=== PATIENT | female | born 1985 ===

== ENCOUNTER 2018-03-20 15:52 | Emergency (ER) | payer BC ==
[2018-03-20 16:14] VITALS: BP 149/83
--- NOTE | 2018-03-20 16:51 | UC ---
Lower Extremity/Ankle HPI - HPI Summary HPI Summary: zeus is a 32-year-old female presenting to the with complaint of right dorsal foot pain which began approximately at 1 PM this afternoon. She states she has been working out a bit more frequently over the past few weeks. She denies any calf pain or recent travel. Endorses a mild amount of warmth to the dorsal aspect of the right foot without erythema. Denies any known injury. She has never injured this area before. Denies any ankle pain or lower extremity pain otherwise. She is ambulating, but with pain. She has not taken anything [id number] for relief. She has not been using ice or elevation for relief. Pain is worse with dorsiflexion and better with plantar flexion. - History of Current Complaint Chief Complaint: UCLowerExtremity Stated Complaint: R FOOT PAIN Time Seen by Provider: 03/20/18 16:05 Hx Obtained From: Patient Hx Last Menstrual Period: 03/13/18 ?: No Onset/Duration: Sudden Onset Severity Initially: Mild Severity Currently: Mild Pain Intensity: 6 Pain Scale Used: 0-10 Numeric Aggravating Factor(s): Standing, Ambulation Alleviating Factor(s): Rest Able to Bear Weight: No - Risk Factors Gout Risk Factors: Negative DVT Risk Factors: Negative Septic Arthritis Risk Factor: Negative - Allergies/Home Medications Allergies/Adverse Reactions: Allergies Allergy/AdvReac Type Severity Reaction Status Date / Time Sulfa (Sulfonamide Allergy Mild Rash Verified 03/20/18 16:14 Antibiotics) Home Medications: Home Medications Aspirin [Aspirin Childrens 81 MG] 2 cap PO PRN 03/20/18 [History] PMH/Surg Hx/FS Hx/Imm Hx Previously Healthy: Yes - Surgical History Surgical History: Yes Surgery Procedure, Year, and Place: wisdom teeth - Family History Known Family History: Positive: Unknown - Social History Occupation: Employed Full-time Lives: With Family Alcohol Use: Occasionally Substance Use Type: None Smoking Status (MU): Never Smoked Tobacco Review of Systems Constitutional: Negative Skin: Negative Respiratory: Negative Cardiovascular: Negative Motor: Negative Neurovascular: Negative Musculoskeletal: Arthralgia Neurological: Negative Is Patient Immunocompromised?: No All Other Systems Reviewed And Are Negative: Yes Physical Exam Triage Information Reviewed: Yes Appearance: Well-Appearing, No Pain Distress, Well-Nourished Vital Signs: Initial Vital Signs Temp 100 F 03/20/18 16:08 Pulse 105 03/20/18 16:08 Resp 18 03/20/18 16:08 BP 149/83 03/20/18 16:08 Pulse Ox 100 03/20/18 16:08 Vital Signs Reviewed: Yes Eye Exam: Normal Neck exam: Normal Neck: Positive: Supple, No Lymphadenopathy Respiratory Exam: Normal Respiratory: Positive: Chest non-tender, Lungs clear Musculoskeletal: Positive: No Edema Psychological Exam: Normal Psychological: Positive: Normal Response To Family Skin Exam: Normal Lower Extremity Course/Dx - Course Course Of Treatment: Course of treatment, the patient is evaluated for right dorsal foot pain which began suddenly today at rest at 1 PM. X-ray obtained. Negative for any acute findings. She is given crutches and orthopedic referral. I have encouraged ibuprofen, ice and elevation. Likely tendinitis vs stress fracture. - Differential Dx/Diagnosis Provider Diagnoses: Right dorsal foot pain Discharge - Sign-Out/Discharge Documenting (check all that apply): Discharge/Admit/Transfer - Discharge Plan Condition: Stable Disposition: HOME Patient Education Materials: Tendinitis (ED) Referrals: Serafin Latham MD [Medical Doctor] - [facility] [Primary Care Provider] - Additional Instructions: Ibuprofen 600mg three times daily Crutches Ice Elevation Follow up with ortho for worsening symptoms - Billing Disposition and Condition Condition: STABLE Disposition: HOME
--- NOTE | 2018-03-20 17:01 | RAD ---
INDICATION: Atraumatic dorsal right foot pain COMPARISON: None. TECHNIQUE: 2 views of the right foot were obtained. FINDINGS: The adequately corticated bones are properly aligned. Joint spaces appear maintained. No fracture, dislocation or focal bony abnormality is seen. IMPRESSION: Normal radiograph of the right foot. If the patient's symptoms persist, follow-up imaging is recommended.
== END 2018-03-20 17:25 | disposition home or self-care (01) ==
LOC: UCEAST 15:52
DX: M79.671 Pain in right foot (principal); Z88.2 Allergy status to sulfonamides
CPT/HCPCS: 99212; G0463